=== PATIENT | male | born 1935 | race Caucasian/White ===

== ENCOUNTER 2016-12-21 18:28 | Emergency (ER) | payer OTHER, MEDICAID ==
[2016-12-21 18:39] VITALS: BP 133/78
[2016-12-21] MEDS ORDERED: NS 1000 ML 1,000 ML IV ONE (18:49)
[2016-12-21] MEDS ORDERED: TORADOL 30 MG VIAL IVP STA (18:49)
[2016-12-21] MEDS ORDERED: NS 1000 ML 1,000 ML ONE (18:51)
--- NOTE | 2016-12-21 18:53 | DR.EXTPAIN ---
HPI - Time seen Time seen: 18:49 - PCP Primary Care Physician: DR. KENT - Complaint/Symptoms Chief Complaint Doctor Comments: Patient states he was helping someone huck up a tractor to the box blade when the wheel caught him between the tractor and the box blade for several minutes taking from 5 to 30 minutes to get him free. states he had problems walking afterwards and almost passed out. States he is having bilateral lower leg pain from knee down with bruise on the right thigh. States he had a tetanus about six months ago. He denies chest pain, SOB, nausea or vomiting. States the pain is 8 of 10. Chief Complaint:: PATIENT STATED THAT HE WAS CAUGHT BETWEEN A TRACTOR AND BOX BLADE. HE STATED THAT HE WAS TRAPPED AROUND 5 MINS. HE IS C/O BI-LATERAL LOWER LEG PAIN. PATIENT HAS BRUISING AND SWELLING NOTED. PATIENT HAS GOOD PETAL PULSES BI LAT. - Nurses notes reviewed Nurses Notes Review: Yes - Source History Provided: Patient - Mode of arrival Mode of Arrival: Wheelchair - Timing Onset of Chief Complaint: 12/21/16 - Context History of: None - Associated signs and symptoms Associated Signs and Symptoms: Abrasion, Pain, Swelling (lower legs with 6 cm bruise right upper thigh), Bruising PMH - PMH Past Medical History: Yes Past Medical History: Arthritis, Dyslipidemia, Hypertension Past Surgical History: Yes Past Surgical History Comment: EYE SURGERY - Family History History of Family Medical Conditions: No - Social History Does patient currently use any type of tobacco product: Yes Have you used tobacco products in the last 12 months: Yes Type of Tobacco Use: Cigarettes Does any household member use tobacco: No Alcohol Use: None Do you use any recreational Drugs:: No Lives With: Family Lives Where: Home - infectious screening In the last 2 months have you had wt loss of >10#?: NO Have you had fever, night sweats or hemotysis?: No Have you traveled outside the country in the last 6 months?: No Isolation: Standard ROS - Review of Systems Constitutional: No Symptoms Reported. negative: See HPI, Chills, Diaphoresis, Fever, Malaise, Weakness, Irritable, Fatigue, Loss of Appetite, Other Eyes: No Symptoms Reported. negative: See HPI, Eye Pain, Blurred Vision, Tearing, Discharge, Photophobia, Diplopia, Other ENTM: No Symptoms Reported Cardiovascular: No Symptoms Reported. negative: See HPI, Chest Pain, Edema, Palpitations, Syncope, Cyanosis, Skin Mottling, Other Gastrointestinal/Abdominal: No Symptoms Reported. negative: See HPI, Abdominal Pain, Constipation, Diarrhea, Nausea, Vomiting, Food Intolerance, Other Genitourinary: No Symptoms Reported. negative: See HPI, Discharge, Dysuria, Frequency, Hematuria, Pain, Bleeding, Other Neurological: No Symptoms Reported, Problems Walking (bilaterally lower leg pain ). negative: See HPI, Anxiety, Depressed, Emotional Problems, Headache, Numbness, Paresthesia, Pre-existing Deficit, Seizure, Tingling, Tremors, Weakness, Dizziness, Speech Problem, Other Musculoskeletal: No Symptoms Reported, Muscle Pain, Right, Left, Leg Integumentary: No Symptoms Reported, Bruises (bilateral lower legs) Hematologic/Lymphatic: No Symptoms Reported Endocrine: No Symptoms Reported Psychiatric: No Symptoms Reported PE - Vital Signs Vitals: Temperature 97.7 F Pulse Rate 88 Respiratory Rate 20 Blood Pressure 133/78 O2 Sat by Pulse Oximetry 98 - General Limitations: No Limitations General Appearance: Alert, In Distress (moderate) - Head Head Exam: Normal Inspection, Atraumatic, Normocephalic - Eyes Eye exam: Normal Appearance, PERRL, EOMI. negative: Scleral Icterus, Conjunctival Injection, Nystagmus, Miosis, Mydrasis, Periorbital Swelling, Periorbital Tenderness, Other - ENT ENT Exam: Normal Exam, Normal Oropharynx, Normal External Ear Exam, Mucous Membranes Moist, TM's Normal Bilaterally - Neck Neck Exam: Normal Inspection, Full ROM, Trachea Midline. negative: Tenderness, Meningismus, Lymphadenopathy, Thyromegaly, Other - Chest Chest Inspection: Normal Inspection, Symmetric Chest Wall Rise. negative: Tenderness, Rash, Abscess, Other - Respiratory Respiratory Exam: Normal Lung Sounds Bilat, Accessory Muscle Use. negative: Chest Wall Tenderness, Prolonged Expiratory Phase, Respiratory Distress, Stridor , Other Respiratory Exam: Bilateral Clear to Auscultation - Cardiovascular Cardiovascular Exam: Regular Rate, Normal Rhythm, Normal Heart Sounds. negative : Bradycardia, Tachycardia, Irregular Rhythm, Systolic Murmur, Diastolic Murmur , Rubs, Gallop, Clicks, JVD, +S1, +S2, +S3, +S4, Other - Abdominal Exam Abdominal Exam: Normal Inspection, Normal Bowel Sounds, Soft. negative: Distention, Tenderness, Guarding, Rebound, Rigidity, Dimnished Bowel Sounds, Hyperactive Bowel Sounds, Hypoactive Bowel Sounds, Organomegaly, Trauma, Incision, Ascites, Mass, Bruit, Pulsatile Mass, Hernia, Other Abdominal Tenderness: negative: RUQ, RLQ, LUQ, LLQ, Epigastrium, Suprapubic, Diffuse, Mild, Moderate, Severe, Other - Extremities Extremities Exam: Normal Inspection, Full ROM, Tenderness (lower leg with swelling; right lower leg with 6cm indented skin with swelling; left leg with swelling, ecchymosis; pulse 3+ bilaterally), Normal Capillary Refill - Upper Extremities Shoulder Exam: Normal Inspection, Full ROM. negative: Tenderness, Swelling, Abrasion, Laceration, Ecchymosis, Deformity, Crepitus, Dislocation, Erythema, Tenderness over AC Joint, Other Arm Exam: Normal Inspection, Full ROM. negative: Tenderness, Swelling, Abrasion , Laceration, Ecchymosis, Deformity, Crepitus, Erythema, Other Elbow Exam: Normal Inspection, Full ROM. negative: Tenderness, Swelling, Abrasion, Laceration, Ecchymosis, Deformity, Crepitus, Dislocation, Erythema, Effusion, Pain w/ pronation, Pain w/ Spuination, Tenderness over Radial Head, Other Forearm Exam: Normal Inspection, Full ROM. negative: Tenderness, Swelling, Abrasion, Laceration, Ecchymosis, Deformity, Crepitus, Erythema, Dislocation, Other Hand Exam: Normal Inspection, Full ROM. negative: Tenderness, Swelling, Abrasion, Laceration, Ecchymosis, Skin Avulsion, Deformity, Crepitus, Erythema, Dislocation, Amputation, Nail Avulsion, Subungual Hematoma, Other Neuromotor Exam: Normal Exam. negative: Wrist Extension, Thumb Opposition, Thumb IP Flexion, Thumb Adduction, Fingers 2-5 Abduction, Other Neurosensory Exam: Normal Exam. negative: Radial Nerve, Ulnar Nerve, Median Nerve, Axillary Nerve, 2-Point Discrimination, Other Hand Tendon Exam: negative: Flexor Digitorium Profundus (Location), Flexor Digitorium Superficialis (Location), Extensor Tendon (Location), Other Upper Ext. Vascular Exam: Capillary Refill, Radial Pulse (normal) - Lower Extremities Hip/Pelvis Exam: Normal Inspection, Full ROM, Tenderness (right thigh witha5 cm abrasion), Abrasion Upper Leg Exam: Normal Inspection, Full ROM Knee Exam: Normal Inspection, Full ROM. negative: Tenderness, Swelling, Abrasion, Laceration, Ecchymosis, Deformity, Crepitus, Dislocation, Erythema, Effusion, Anterior Drawer Sign, Posterior Draw Sign, Pain with Valgus, Laxity with Valgus, Pain with Varus, Knee Extension Intact, Other Lower Leg Exam: Normal Inspection, Full ROM, Tenderness, Swelling (lower tib/ fib with ecchymosis left lower leg), Ecchymosis Ankle Exam: Normal Inspection, Full ROM Foot/Toe Exam: Normal Inspection, Full ROM Neurovascular/Tendon Exam: Normal Capillary Refill, Motor Deficit, Normal 2- point discrimination Gait Exam: Not Tested/Not Observed - Back Back Exam: Normal Inspection, Full ROM. negative: Tenderness, (R) CVA Tenderness, (L) CVA Tenderness, Muscle Spasm, Paraspinal Tenderness, Vertebral Tenderness, Rashes, (R) Sciatic Notch Tenderness, (L) Sciatic Notch Tendern, (R ) Straight Leg Raise, (L) Straight Leg Raise, Other - Neurological Neurological Exam: Alert, Oriented X3, CN II-XII Intact, Reflexes Normal. negative: Normal Gait - Psychiatric Psychiatric Exam: Normal Affect, Normal Mood. negative: Depressed, Agitated, Anxious, Flat Affect, Manic, Homicidal Ideation, Suicidal Ideation, Other - Skin Type of Lesion: Abrasion Distribution: negative: Generalized, Involves Palms/Soles, Head, Face, Neck, Thorax, Chest, Back, Abdomen, Genitals, LUE, LLE, RUE, RLE, Other Description: negative: Size, Tenderness, Erythematous, Swelling, Macular, Papular, Vesicular, Blisters, Cofluent, Bullous, Petechial, Purpuric, Urticarial , Crusting, Discharge, Fluctuant, Indurated, Other ROR - Labs Reviewed Laboratory Results Reviewed?: Yes (all labs and x-ray results reviewed and discussed with patient) Result Diagrams: 12/21/16 19:00 12/21/16 19:00 Laboratory: WBC 9.1 X10^3/uL (3.6-10.0) 12/21/16 19:00 RBC 3.97 X10^6/uL (4.7-6.0) L 12/21/16 19:00 Hgb 12.3 g/dL (13.5-18.0) L 12/21/16 19:00 Hct 35.5 % (42.0-54.0) L 12/21/16 19:00 MCV 89.5 fL (80.0-100.0) 12/21/16 19:00 MCH 30.9 pg (27.0-34.0) 12/21/16 19:00 MCHC 34.5 g/dL (33.0-35.0) 12/21/16 19:00 RDW 15.0 % (11.6-16.5) 12/21/16 19:00 Plt Count 242 X10^3/uL (150.0-450.0) 12/21/16 19:00 MPV 8.0 fL (7.4-11.0) 12/21/16 19:00 Neut % 67.6 % (42.0-75.0) 12/21/16 19:00 Lymph % 22.1 % (21.0-51.0) 12/21/16 19:00 Gentry % 7.9 % (0.0-13.0) 12/21/16 19:00 Eos % 2.1 % (0.9-2.9) 12/21/16 19:00 Baso % 0.3 % (0.2-1.0) 12/21/16 19:00 Neut # 6.2 x10^3/uL (2.2-4.8) H 12/21/16 19:00 Lymph # 2.0 X10^3/uL (1.3-2.9) 12/21/16 19:00 Gentry # 0.7 x10^3/uL (0.3-0.8) 12/21/16 19:00 Eos # 0.2 x10^3/uL (0.0-0.2) 12/21/16 19:00 Baso # 0.0 X10^3/uL (0.0-0.1) 12/21/16 19:00 Absolute Nucleated RBC 0.1 /100WBC 12/21/16 19:00 Sodium 131 mmol/L (136-145) L 12/21/16 19:00 Corrected Sodium TNP 12/21/16 19:00 Potassium 4.2 mmol/L (3.5-5.1) 12/21/16 19:00 Chloride 99 mmol/L (98-107) 12/21/16 19:00 Carbon Dioxide 27.6 mmol/L (21-32) 12/21/16 19:00 BUN 18 mg/dL (7-18) 12/21/16 19:00 Creatinine 1.04 mg/dL (0.70-1.30) 12/21/16 19:00 Est GFR (MDRD) Af Amer > 60 (>60) 12/21/16 19:00 Est GFR (MDRD) Non-Af > 60 (>60) 12/21/16 19:00 Glucose 110 mg/dL (65-99) H 12/21/16 19:00 Calcium 8.8 mg/dL (8.5-10.1) 12/21/16 19:00 Corrected Calcium 9.4 mg/dL (8.5-10.1) 12/21/16 19:00 Total Bilirubin 0.50 mg/dL (0.2-1.0) 12/21/16 19:00 AST 19 Units/L (15-37) 12/21/16 19:00 ALT 24 Units/L (12-78) 12/21/16 19:00 Alkaline Phosphatase 53 Units/L (46-116) 12/21/16 19:00 Total Protein 7.3 g/dL (6.4-8.2) 12/21/16 19:00 Albumin 3.3 g/dL (3.4-5.0) L 12/21/16 19:00 Globulin 4.0 g/dL (2.5-4.5) 12/21/16 19:00 Albumin/Globulin Ratio 0.8 Ratio (1.1-2.1) L 12/21/16 19:00 - XRAY XRAY Interpreted by: Self (X-ray lower right leg: no fracture or dislocation noted; x-ray left lower leg: no fracture or dislocation noted in tib/fib), Both (Pelvis: no fracture or dislocation noted; degenerative changes noted) XRAY Findings: Left Knee: degenerative changes; no fracture or dislocation noted. - Diagnosis Discharge Problem: Contusion of knee and lower leg, Degenerative arthritis, Abrasion of hip or leg , right, Myalgia, traumatic - Discharge Plan Disposition: HOME, SELF-CARE Condition: Stable Prescriptions: Acetaminophen/Codeine Tab [TYLENOL w/CODEINE #3 (300 MG/30 MG) *] 1 tab PO Q4- 6H PRN #30 tab PRN Reason: Pain - Follow ups/Referrals Follow ups/Referrals: JULIET RECINOS [Primary Care Provider] - 3 days FRANCES CAVANAUGH [STAFF PHYSICIAN] - 3 days - Instructions Instructions: Contusion, Abrasion, Muscle Pain, Adult, Osteoarthritis
[2016-12-21] MEDS ORDERED: TORADOL 30 MG VIAL ONE (19:06)
[2016-12-21 19:26] LABS: BASOPHILS % (AUTO) 0.3 % (0.2-1.0); EOSINOPHILS # (AUTO) 0.2 x10^3/uL (0.0-0.2); EOSINOPHILS % (AUTO) 2.1 % (0.9-2.9); HEMATOCRIT 35.5 % (42.0-54.0); HEMOGLOBIN 12.3 g/dL (13.5-18.0); LYMPHOCYTES % (AUTO) 22.1 % (21.0-51.0); MEAN CORPUSCULAR HEMOGLOBIN 30.9 pg (27.0-34.0); MEAN CORPUSCULAR HGB CONC 34.5 g/dL (33.0-35.0); MEAN CORPUSCULAR VOLUME 89.5 fL (80.0-100.0); MONOCYTES # (AUTO) 0.7 x10^3/uL (0.3-0.8); MONOCYTES % (AUTO) 7.9 % (0.0-13.0); NEUTROPHILS # (AUTO) 6.2 x10^3/uL (2.2-4.8); NEUTROPHILS % (AUTO) 67.6 % (42.0-75.0); PLATELET COUNT 242 X10^3/uL (150.0-450.0); RED BLOOD COUNT 3.97 X10^6/uL (4.7-6.0); WHITE BLOOD COUNT 9.1 X10^3/uL (3.6-10.0)
[2016-12-21 19:30] LABS: ALANINE AMINOTRANSFERASE 24 Units/L (12-78); ALBUMIN 3.3 g/dL (3.4-5.0); ALKALINE PHOSPHATASE 53 Units/L (46-116); ASPARTATE AMINO TRANSFERASE 19 Units/L (15-37); BLOOD UREA NITROGEN 18 mg/dL (7-18); CALCIUM 8.8 mg/dL (8.5-10.1); CARBON DIOXIDE 27.6 mmol/L (21-32); CHLORIDE 99 mmol/L (98-107); COR CA(FOR HYPOALB) 9.4 mg/dL (8.5-10.1); CREATININE 1.04 mg/dL (0.70-1.30); GLUCOSE 110 mg/dL (65-99); SODIUM 131 mmol/L (136-145); TOTAL PROTEIN 7.3 g/dL (6.4-8.2); eGFR BLACK RACES > 60 (>60); eGFR NON BLACK RACES > 60 (>60)
[2016-12-21] MEDS ORDERED: BACTROBAN OINT TOP ONE (20:40)
--- NOTE | 2016-12-21 21:00 | RAD ---
Left leg-four views Indication: Pain after trauma. Findings: There is fracture of the proximal fibula with lateral soft tissue swelling, at the fibular neck. Distal ankle appears intact. Tibia shows no displaced fracture. Knee injury may be present. Impression: 1. Proximal fibula neck fracture. No other fracture seen. 2. Knee radiographic followup recommended. Reported By:
--- NOTE | 2016-12-21 21:09 | RAD ---
Left knee-four views Indication: Tractor injury. Findings: There is soft tissue swelling over the lateral knee, with fracture of the left fibular nec k. Injury to the lateral ligaments is possible. No intra-articular effusion convincingly demonstrate d. Impression: Proximal fibula fracture. No other fracture convincingly demonstrated. Reported By:
--- NOTE | 2016-12-21 21:10 | RAD ---
Right tibia and fibula-two views, 4 images Indication: Tractor injury. Findings: There is intra-articular osteochondral body at the anterior central knee joint space. No c ortical lucency or malalignment seen. Impression: 1. No acute fracture. 2. Intra-articular body at the knee joint. Reported By:
--- NOTE | 2016-12-21 21:11 | RAD ---
AP pelvis Indication: Pain after trauma. Tractor injury. Findings: Bilateral hip joints are intact. SI joints, hip joints, symphysis pubis and spine show min imal degenerative change. No cortical lucency or malalignment seen. Impression: No displaced pelvic fracture. Bowel gas obscures detail minimally. Degenerative changes present. Reported By:
--- NOTE | 2016-12-21 21:11 | RAD ---
Right femur-two views, 4 images Indication: Crushing injury from a tractor. Findings: The right hip is intact. Mild degenerative changes are present. Femur is intact without co rtical lucency or malalignment. There is intra-articular body at the knee joint. Impression: No acute right femur fracture. Intra-articular body at the knee joint. Reported By:
== END 2016-12-21 21:11 | disposition home or self-care (01) ==
LOC: ER 18:28
DX: S80.02XA Contusion of left knee, initial encounter (principal); S80.12XA Contusion of left lower leg, initial encounter; S70.211A Abrasion, right hip, initial encounter; M19.90 Unspecified osteoarthritis, unspecified site; T14.8 Other injury of unspecified body region; W23.1XXA Caught, crushed, jammed, or pinched between stationary objects, initial encounter
CPT/HCPCS: 36415; 72170; 73552; 73564; 73590; 80053; 82550; 85025; 96365; 96367; 96374; 99283; A4222; J1885